=== PATIENT | male | born 1980 | race Caucasian/White ===

== ENCOUNTER 2017-02-15 17:51 | Emergency (ER) | payer SELFPAY ==
[~2017-02-15] VITALS: Ht 170.2 cm; Wt 86.2 kg
--- NOTE | 2017-02-15 18:12 | NUR ---
PT TO ED ROOM 04. RIGHT MIDDLE FINGER LAC. A/A/O. VS WNL. SIDE RAISL UP. HOB ELEVATED. WOUND CARE AT BEDSIDE. SEEN AND EVALUATED BY ED PROVIDER.
[2017-02-15] MEDS ORDERED: LIDOCAINE HCL/PF 1% 30 ML SDV ONE (18:13)
[2017-02-15] MEDS ORDERED: TDAP [DIPH/PERTUSSIS/TET] 0.5 ML VIAL IM ONE ×2 (18:21→18:30)
--- NOTE | 2017-02-15 18:42 | NUR ---
HAND X-RAY AT BEDSIDE
[2017-02-15 19:25] VITALS: BP 122/67
--- NOTE | 2017-02-15 19:25 | NUR ---
Patient discharged to home in stable condition. Written and verbal after care instructions given. Patient verbalizes understanding of instruction. ambulatory with a steady gait. NAD. VS WNL.
== END 2017-02-15 19:26 | disposition home or self-care (01) ==
LOC: ER 17:53
DX: S61.212A Laceration without foreign body of right middle finger without damage to nail, initial encounter (principal); Z98.890 Other specified postprocedural states; W22.8XXA Striking against or struck by other objects, initial encounter; Y93.89 Activity, other specified; Y92.89 Other specified places as the place of occurrence of the external cause; Y99.9 Unspecified external cause status
CPT/HCPCS: 73140-TC; 90715; A4606; A6402; J3490; Z7610

== ENCOUNTER 2017-02-22 19:40 | Emergency (ER) | payer SELFPAY ==
[~2017-02-22] VITALS: Ht 172.7 cm; Wt 86.2 kg
[2017-02-22 19:40] VITALS: BP 129/71
--- NOTE | 2017-02-22 20:40 | NUR ---
suture removal done. 6 sutures taken out. wound care provided. d/c in stable condition.
== END 2017-02-22 20:42 | disposition home or self-care (01) ==
LOC: ER 19:43
DX: S61.212D Laceration without foreign body of right middle finger without damage to nail, subsequent encounter (principal); Z98.890 Other specified postprocedural states
CPT/HCPCS: A4606; A6402; Z7502; Z7610

== ENCOUNTER 2018-03-04 19:24 | Emergency (ER) | payer MEDICAID ==
[~2018-03-04] VITALS: Ht 175.3 cm; Wt 74.8 kg
[2018-03-04 19:24] VITALS: BP 114/71
== END 2018-03-04 20:26 | disposition home or self-care (01) ==
LOC: ER 19:25
DX: T70.0XXA Otitic barotrauma, initial encounter (principal); X58.XXXA Exposure to other specified factors, initial encounter; Z98.890 Other specified postprocedural states
CPT/HCPCS: 99282; A4606; Z7610